=== PATIENT | female | born 1980 | race African-American/Black ===

== ENCOUNTER 2023-02-11 19:50 | Emergency (ER) | payer OTHER ==
[~2023-02-11] VITALS: Ht 172.7 cm; Wt 86.0 kg
[2023-02-11 20:19] VITALS: BP 144/108; PULSE 103; RESP 18; TEMP 98; O2SAT 100
== END 2023-02-11 21:00 ==
LOC: ER 19:50
DX: I10 Essential (primary) hypertension (principal)
CPT/HCPCS: 99283